=== PATIENT | female | born 1980 | race Two or more races ===

== ENCOUNTER → 2022-01-03 | Day surgery (SDC) | payer OTHER, BC | END | disposition home or self-care (01) | LOC: JRADIR 09:48 | PROVIDERS: ATTEND Internal Medicine Endocrinology, Diabetes & Metabolism | PROC: 0G9K3ZX Drainage of Thyroid Gland, Percutaneous Approach, Diagnostic (ICD-10-PCS; principal; 2022-01-03) | DX: E04.1 Nontoxic single thyroid nodule (principal) | CPT/HCPCS: 10005; 76942; 88173; 88305-TC ==

== ENCOUNTER 2022-02-25 10:51 | Emergency (ER) | payer OTHER, BC ==
[2022-02-25 10:58] VITALS: BP 120/71; PULSE 80; RESP 20; TEMP 98.1; BMI 28.7
[2022-02-25] MEDS ORDERED: RALTEGRAVIR POTASSIUM 400 MG TAB PO ONE (12:14)
[2022-02-25] MEDS ORDERED: EMTRICITABINE 200MG/TENOFOVIR 300MG PO ONE (12:14)
[2022-02-25 12:24] LABS: BASO % 0.4 % (0-2.0); EOS % 1.1 % (0-4.5); HEMATOCRIT 39.5 % (32.4-45.2); HEMOGLOBIN 12.8 GM/dL (10.7-15.3); LYMPH % 21.6 % (8-40); MCHC 32.5 g/dl (32.0-36.0); MEAN CELL VOLUME 83.2 fl (80-96); MEAN PLT VOLUME 7.7 fl (7.5-11.1); MONO % 6.3 % (3.8-10.2); NEUT % 70.6 % (42.8-82.8); PLATELET COUNT 234 10^3/uL (134-434); RBC 4.75 M/mm3 (3.60-5.2); RDW 14.7 % (11.6-15.6)
[2022-02-25] MEDS ORDERED: HIV POST EXPOSURE PROPHYLAXIS KIT PO ONE (12:46)
[2022-02-25 12:58] LABS: CALCIUM 9.1 mg/dL (8.5-10.1)
[2022-02-25 12:59] LABS: ALBUMIN 3.8 g/dl (3.4-5.0)
[2022-02-25 13:02] LABS: CREATININE 0.6 mg/dL (0.55-1.3)
[2022-02-25 13:04] LABS: PHOSPHOROUS 3.4 mg/dL (2.5-4.9); TOT PROT 7.4 g/dl (6.4-8.2)
[2022-02-25 13:06] LABS: BILIRUBIN,TOTAL 0.5 mg/dL (0.2-1)
[2022-02-25 13:48] LABS: HIV INTERPRETATION NEGATIVE (NEGATIVE)
== END 2022-02-25 12:53 | disposition home or self-care (01) ==
LOC: JERFT 10:51 → JER 10:51 → JERFT 12:53
DX: Z77.21 Contact with and (suspected) exposure to potentially hazardous body fluids (principal)
CPT/HCPCS: 36415; 80053; 82465; 82977; 83615; 84100; 84478; 84550; 85025; 86704; 86803; 87340; 87389; 87517; 99283-25